=== PATIENT | female | born 1985 | race Caucasian/White ===

== ENCOUNTER → 2024-11-30 09:19 | Outpatient (REF) | payer BC, SELFPAY | LOC: RAD 09:19 | PROVIDERS: ATTENDING PHYSICIAN Urology; FAMILY PHYSICIAN Student in an Organized Health Care Education/Training Program | DX: R10.9 Unspecified abdominal pain (principal) | CPT/HCPCS: 74176 ==

== ENCOUNTER → 2024-12-26 11:06 | Outpatient (REF) | payer BC, SELFPAY | LOC: RAD 11:06 | PROVIDERS: ATTENDING PHYSICIAN Obstetrics & Gynecology; FAMILY PHYSICIAN Student in an Organized Health Care Education/Training Program | DX: D36.9 Benign neoplasm, unspecified site (principal) | CPT/HCPCS: 76830; 76856 ==

== ENCOUNTER → 2025-05-30 14:24 | Outpatient (REF) | payer BC, SELFPAY | LOC: HWRAD 14:24 | PROVIDERS: ATTENDING PHYSICIAN Obstetrics & Gynecology; FAMILY PHYSICIAN Student in an Organized Health Care Education/Training Program | DX: N83.202 Unspecified ovarian cyst, left side (principal) | CPT/HCPCS: 76830; 76856 ==

== ENCOUNTER 2025-05-31 16:07 | Emergency (ER) | payer BC, SELFPAY ==
[2025-05-31 16:09] VITALS: BP 124/88
--- NOTE | 2025-05-31 17:02 | ED.GENMED ---
History of Present Illness
General
Chief Complaint: Heart Rate Problem
Source: patient
Exam Limitations: none
Time Seen by Provider: 05/31/25 16:55
History of Present Illness
History of Present Illness:
39yoF with no significant past medical history presenting for evaluation of palpitations. Symptoms began yesterday afternoon. She reports a fluttering in her chest that is intermittent. Symptoms woke her up in the middle of the night last night
and became more frequent a few hours ago. Symptoms are now occurring every 3 minutes or so. She feels short of breath during the fluttering. At one point, she developed a tightness in her bilateral scapular region which has now resolved. She is
unsure if that was related to anxiety. Her father had an [place] at the age of 42 so she is worried about that. She saw a clean room technician in her 20s and was told that her valves were leaky but it was nothing to be concerned about. She is not on any
prescription medications.
Phy Exam
General Physical Exam
General Presentation: well appearing and no apparent distress
General Skin: warm and dry
General Habitus: normal
General Mental: alert
ENT Exam
ENT Exam: normocephalic
Cardiovascular Exam
Cardiovascular Exam: regular rate/rhythm, no edema, no murmur and normal peripheral pulses
Pulmonary Exam
Pulmonary Exam: lungs clear, no respiratory distress, no rales, no crackles, no rhonchi and no wheezing
Neurological Exam
Neurological Exam: alert
[place] Coma Scale
Eye Opening: Spontaneous
Verbal Response: Oriented
Motor Response: Obeys Commands
GCS Total Score: 15
Skin Exam
Skin Exam: normal color and warm/dry
Psychiatric Exam
Psychiatric Exam: normal mood/affect
Course
Orders/Labs/Results
Orders:
Orders
05/31/25 16:07
EKG [Electrocardiogram (*1)] Urgent
Reason for Study: Chest Pain
EKG- Treatment ONCE
05/31/25 17:13
Cardiac Monitoring- Treatment ONCE
05/31/25 17:40
Complete Blood Count/With Diff Urgent
TSH Reflex To Free T4 Urgent
Comment: ADD ON
Troponin I Urgent
05/31/25 17:41
Comprehensive Metabolic Panel Urgent
D-Dimer Urgent
Magnesium Urgent
05/31/25 19:03
Add On- LAB Stat
Tests Added?: TSH with reflex to T4
Abnormal Lab Results
05/31/25
17:40
Absolute Lymphs (auto) 3.5 H 10^3/uL
(1.2-3.4)
Absolute Monos (auto) 0.7 H 10^3/uL
(0.1-0.6)
05/31/25 17:40
05/31/25 17:41
Vital Signs
Initial and Last Documented VS:
Initial Vital Signs
Temp Pulse Resp BP Pulse Ox
98.2 F 79 16 124/88 100
05/31/25 16:09 05/31/25 16:09 05/31/25 16:09 05/31/25 16:09 05/31/25 16:09
Last Documented Vital Signs
Temp Pulse Resp BP Pulse Ox
98.2 F 85 24 110/80 100
05/31/25 16:09 05/31/25 20:30 05/31/25 20:30 05/31/25 20:12 05/31/25 20:12
MDM/Problems Addressed
Differential Diagnosis Includes:
39yoF here with palpitations since this morning. Feels like her heart is fluttering. Had SOB earlier which has resolved. VSS. Patient well appearing in no distress. Exam reassuring. Differential diagnosis includes: arrhythmia, PVCs, thyroid
dysfunction, electrolyte abnormality
Initial ED plan: Triage EKG shows NSR with a single PVC. No ischemic changes noted. Will check cardiac labs, TSH, magnesium, and place on cardiac rehabilitation program director.
*Pulse Oximetry
SaO2: 100
Oxygen Mode of Delivery: Room air
Patient hypoxic: no
*EKG
Interpreted by ED Provider?: Yes
EKG Intrepretation Date: 05/31/25
Heart Rate: 94
Rate: normal
Rhythm: sinus and PVC's
[place]: normal axis
Interval: normal interval
QRS Pattern: normal QRS
Ischemia: no ischemia
*Critical Care Note
Total Time (30-74mins, 75-104mins- exclusive of procedures): Not Applicable
Update Note
Update Note:
Labs unremarkable including normal electrolytes, TSH, and troponin. No telemetry events throughout ED stay. Patient noted to have very infrequent PVCs on the monitor during reassessment which are the likely culprit of her symptoms. She is stable
for discharge. Discussed possible need for outpatient Holter monitor. She was instructed to follow-up with her PCP. Given her strong family history, she was also given contact information for cardiology. ED return precautions reviewed and she
was discharged in stable condition.
ED Attending Note
-
Portions of this chart may have been created with voice recognition software.� Occasional wrong word or��sound alike� substitutions may have occurred due to the inherent limitations of voice recognition software.
Discharge Plan
Departure
Patient Disposition: Home (Routine Discharge)
Date of Disposition: 05/31/25
Time of Disposition: 20:13
Patient with high blood pressure during this ER visit?: No
Discharge Problem:
Palpitations
Instructions: Palpitations (DC)
Prescriptions:
No Action
No Current Medications
0
Referrals:
oJel Hidalgo DO [Family Provider, Family Practice]
Ida Mehta DO [Active, Cardiology]
Activity Restrictions/Additional Instructions:
Please call on Monday to schedule a follow-up appointment with your family doctor and discuss outpatient Holter monitor. Contact information for cardiology is provided below.
Return to the ER with any new or worsening symptoms.
Interventions
Interventions:
*Risk Screen - Suicide Last Done: 05/31/25 16:09
*General Assessment Last Done: 05/31/25 17:31
*Neglect/Abuse Screening Last Done: 05/31/25 16:09
*ED- Fall Risk Assessment Last Done: 05/31/25 17:31
*ED COVID-19 Vaccine History Last Done: 05/31/25 17:31
*ED Influenza Vaccine History Last Done: 05/31/25 17:31
*Nursing Disposition Last Done: 05/31/25 20:50
ED- Cardiac Assessment Last Done: 05/31/25 17:28
ED- Pulmonary Assessment Last Done: 05/31/25 17:28
Discharge Date and Time
Discharge Date/Time: 05/31/25 20:50
Print Language: [id number]
[2025-05-31 17:28] VITALS: BP 110/84
[2025-05-31 17:30] VITALS: BMI 25.0
[2025-05-31 17:48] LABS: Hematocrit 39.2 % (37.0-47.0); Hemoglobin 13.1 g/dL (12.0-16.0); Mean Corp Hgb Conc. 33.4 g/dL (33.0-37.0); Mean Corpuscular Volume 87.9 fL (81.0-99.0); Nucleated Red Blood Cells % 0 %; Platelet Count 322 10^3/uL (130-400); Red Cell Dist. Width 12.5 % (11.5-14.5)
[2025-05-31 18:00] VITALS: BP 110/80
[2025-05-31 18:00] LABS: D-Dimer 0.40 ug/mlFEU (0.00-0.50)
[2025-05-31 18:15] LABS: Troponin I < 0.012 ng/ml
[2025-05-31 18:23] LABS: ALT (SGPT) 23 U/L (0-35); AST (SGOT) 20 U/L (14-36); Albumin 4.6 g/dl (3.5-5.0); Alkaline Phosphatase 70 U/L (38-126); Blood Urea Nitrogen 14 mg/dl (7-17); Calcium 8.9 mg/dl (8.4-10.2); Carbon Dioxide 25 mmol/L (22-30); Chloride 103 mmol/L (98-107); Estimated Creatinine Clearance 87 ml/min; Glucose 92 mg/dl (70-99); Magnesium 2.0 mg/dl (1.6-2.3); Potassium 3.7 mmol/L (3.5-5.1); Sodium 137 mmol/L (135-145); Total Protein 7.1 g/dl (6.3-8.2); eGFR > 60.00
[2025-05-31 20:12] VITALS: BP 110/80
== END 2025-05-31 20:50 | disposition home or self-care (01) ==
LOC: EMR 16:07
PROVIDERS: Physician Assistant; EMERGENCY PHYSICIAN Emergency Medicine; FAMILY PHYSICIAN Student in an Organized Health Care Education/Training Program
DX: R00.2 Palpitations (principal); I49.3 Ventricular premature depolarization; Z82.49 Family history of ischemic heart disease and other diseases of the circulatory system
CPT/HCPCS: 99284; 80053; 83735; 84443; 84484; 85025; 85379; 93005

== ENCOUNTER → 2025-07-11 10:46 | Outpatient (REF) | payer BC, SELFPAY | LOC: WDC 10:46 | PROVIDERS: ATTENDING PHYSICIAN Obstetrics & Gynecology; FAMILY PHYSICIAN Student in an Organized Health Care Education/Training Program | DX: Z12.31 Encounter for screening mammogram for malignant neoplasm of breast (principal) | CPT/HCPCS: 77063; 77067 ==